=== PATIENT | male | born 1975 | race Hispanic/Latino ===

== ENCOUNTER 2023-12-07 11:17 | Inpatient (IN) | payer MEDICARE, MEDICAID ==
[~2023-12-07] VITALS: Ht 170.2 cm; Wt 100.2 kg
[~2023-12-07 11:17] MED LIST: ACYCLOVIR PO; CIPROFLOXACN500 MG PO; HYDROCHLOROT25 MG PO; INTELENCE200 MG PO; LANSOPRAZOLE30 MG PO; LISINOPRIL10 MG PO; NO HOME MEDS; NORVIR100 MG PO; PREZISTA800 MG PO; SUCRALFATE1 GM PO; ZOFRAN ODT4 MG PO
--- NOTE | 2023-12-07 11:28 | NUR ---
PATIENT ARRIVED TO THE UNIT AMBULATORY A DIRECT ADMIT FROM DR. PRESLEY'S OFFICE. PATIENT SETTLED IN ROOM, PROVIDED [facility]OSPITAL G[facility].
[2023-12-07 11:39] VITALS: BP 122/75
--- NOTE | 2023-12-07 11:39 | NUR ---
PATIENT ORIENTED TO ROOM AND CALL AGUSTIN SYSTEM. 20G PLACED IN LFA. ASSESSMENT COCMPLETED. PATIENT ALERT AND ORIENTED X 4. PATIENT C/O PAIN OF A 10, ORDERS FAXED TO PHARMACY FOR PAIN MEDICATIONS. PATIENT PREFERS TO STAND BECAUSE IT IS "UNCOMFORTABLE TO SIT ON MY R SIDE". ABSCESS CHECKED AND NOTED TO HAVE DRAINAGE. 2 X 2 GAUZE APPLIED WITH LARGE TEGADERM TO PREVENT EXCESS DRAINAGE. LUNGS CLEAR TO ASCULTATION. BREATHING EVEN AND UNLABORED ON ROOM AIR. AFEBRILE. PATIENT DECLINED HOSPITAL ISSUED NONSLIP SOCKS AT THIS TIME. SAFETY MEASURES IN PLACE INCLUDING BED IN LOW POSITION AND CALL LIGHT RESTING IN R HAND. NO APPARENT DISTRESS NOTED. WILL CONTINUE WITH PLAN OF CARE. PRE-OP PACKET STARTED, CONSENT SIGNED FOR INCISION AND DRAINAGE OF R BUTTOCK ABSCESS. PATIENT STATED THAT HE IS SUPPOSED TO TAKE LISINOPRIL/HCTZ, BUT HAS NOT TAKEN THEM "IN A WHILE" BECAUSE HE WAS "OUT OF TOWN" FOR SCHEDULED APPOINTMENT AND DID NOT F/U FOR NEW SCRIPT.
[2023-12-07 12:08] LABS: BASO% 0.8 % (0-3); EOS% 6.4 % (0-8); IMMATURE GRANULOCYTES 0.4 % (0.0-5.0); LYMPH% 26.5 % (15-41); MEAN CORPUSCULAR HGB 26.3 pG CALC (26.0-32.0); MEAN CORPUSCULAR HGB CONC 32.5 g/dL CAL (32.0-36.0); MONO% 8.8 % (2-13); NEUT# 2.86 thou/uL (1.82-7.42); NEUT% 57.1 % (42-76); RED BLOOD COUNT 4.48 mill/uL (4.70-6.10); RED CELL DISTRI WIDTH 14.7 % (11.5-15.5)
[2023-12-07 12:09] LABS: HEMATOCRIT 36.3 % (39.0-50.0); HEMOGLOBIN 11.8 g/dl (14.0-18.0)
[2023-12-07] MEDS ORDERED: HYDROmorphone HCL 2 MG/AMP IV PRN ×2 (12:15)
[2023-12-07] MEDS ORDERED: LACTATED RINGER'S 1,000 ML IV PRN (12:15)
[2023-12-07 12:27] LABS: CREATININE 0.9 mg/dL (0.7-1.3); POTASSIUM 3.2 mmol/l (3.5-5.1)
[2023-12-07] MEDS ORDERED: PROMETHAZINE HCL 12.5 MG in SODIUM CHLORIDE 0.9% 50 ML IV PRN (12:50)
[2023-12-07] MEDS ORDERED: ONDANSETRON HCl 4 MG/2 ML SDV IV PRN (12:50)
[2023-12-07] MEDS ORDERED: PIPERACILLIN Sodium-Tazobactam 3.375 GM in SODIUM CHLORIDE 0.9% 100 ML IV SCH (14:00)
--- NOTE | 2023-12-07 15:47 | NUR ---
PATIENT APPEARS TO BE RESTING WITH EYES CLOSED. NO APPARENT DISTRESS NOTED. WILL CONTINUE TO MONITOR PAIN AND ABSCESS DRAINAGE.
[2023-12-07 16:31] VITALS: BP 122/78
[2023-12-07] MEDS ORDERED: POTASSIUM CHLORIDE 20MEQ 100 ML IV SCH (17:00)
--- NOTE | 2023-12-07 17:02 | NUR ---
PATIENT SCHEDULED FOR AN I/D AT 0830
[2023-12-07 18:22] VITALS: BP 122/77
--- NOTE | 2023-12-07 20:00 | NUR ---
PATIENT IN BED ASLEEP ON LEFT SIDE EYES CLOSED. PATIENT RESPONDS TO VERBAL STIMULI. A&O X4. PATIENT COMPLAINS OF PAIN OF A 9, GAVE SCHEDULED PAIN MEDICATION. ASSESSMENT COMPLETED. LUNGS CLEAR TO ASCULTATION. NORMAL S1 AND S2. BOWEL SOUNDS PRESENT. RIGHT SIDE ABSCESS TO BUTTOCKS INSPECTED DRESSING. DRAINAGE NOTED WITH RED BLOOD. CHANGED DRESSING AND SITE CLEANED, APPLIED AQUACELL TO ABSCESS. COMPLETE BED LINEN CHANGE DUE TO DRAINAGE. BED AT LOWEST POSITION. CALL LIGHT WITH IN REACH.
[2023-12-08] VITALS (12 sets, daily range): BP systolic 95–168; BP diastolic 59–95
[2023-12-08] MEDS ORDERED: KETOROLAC TROMETHAMINE 15 MG/ML SDV IV SCH
--- NOTE | 2023-12-08 00:30 | NUR ---
PATIENT IN BED ASLEEP WITH EYES CLOSED ON LEFT SIDE. PATIENT RESPONDS TO VERBAL STIMULI. CAN MAKE NEEDS KNOWN. NONE NEEDED AT THIS TIME. BED AL LOWEST POSITION. CALL AGUSTIN WITH IN REACH.
--- NOTE | 2023-12-08 04:20 | NUR ---
PATIENT IN BED AWAKE. PATIENT RESPONDS TO VERBAL STIMULI. PATIENT STATED " HE IS IN PAIN OF A 10. GAVE DILAUDID 1 MG IV Q2H PER EMAR SCHEDUILED PRN FOR PAIN. REGGIE AT LOWEST POSITION. CALL LIGHT WITH IN REACH.
--- NOTE | 2023-12-08 07:08 | NUR ---
PATIENT RESTING IN BED, REMAINS ON NPO, ONGOING IV 20 LAC LR AT 100CC/HR INFUSING WELL, NO DISCOMFORTS NOTED AT THIS TIME, CALL, LIGHT IN REACHED.
--- NOTE | 2023-12-08 08:00 | NUR ---
Patient off unit to operating room for incision and drainage.
[2023-12-08] MEDS ORDERED: FAMOTIDINE 10MG/ML 2ML SDV IV ONE (08:56)
[2023-12-08] MEDS ORDERED: LACTATED RINGER'S 1,000 ML IV ONE (08:56)
[2023-12-08] MEDS ORDERED: STERILE WATER FOR IRRIGATION 1,000 ML BTL IR ONE (10:13)
[2023-12-08] MEDS ORDERED: LIDOcaine HCl 1% (Local Anesth.) 20 ML VIAL ONE (10:13)
[2023-12-08] MEDS ORDERED: SODIUM CHLORIDE 1,000 ML BTL IR ONE (10:13)
[2023-12-08] MEDS ORDERED: SODIUM CHLORIDE 0.9% 1,000 ML IV ONE (10:13)
[2023-12-08] MEDS ORDERED: oxyCODONE 5MG/ ACETAMINOPHEN 325MG TAB PO PRN (10:45)
--- NOTE | 2023-12-08 12:00 | NUR ---
patient returned from OR. dry dressing to buttocks. report received from catrachita. vital signs stable post op. no bleeding at site. patient oriented and able to move all extremities. continues on zosyn . tolerating it well. comfort and safety measures in place.
--- NOTE | 2023-12-08 15:55 | NUR ---
Patient oriented x 3. Patient toleratinf antibiotics. Comfort and safety measures in place. Vital signs stable
--- NOTE | 2023-12-08 20:00 | NUR ---
PATIENT RESTING IN BED AT THIS TIME. PATIENT APPEARS IN SEVERE POST-OP PAIN TO RIGHT BUTTOCKS. PAIN SCALE 9/10 AT THIS TIME. MEDICATED WITH DILAUDID 1MG IVP ORDERED. IVF LR PATENT AND INFUSING VIA LAC AT 100CC/HR. DRESSING TO RIGHT BUTTOCKS INTACT. VOIDED 600CC OF YELLOW URINE IN URINAL. LUNGS CLEAR, ABD IS SOFT WITH ACTIVE BS. EATING DINNER AND TOLERATE WELL. SAFETY PRECAUTIONS REINFORCED. CALL LIGHT IN REACH. WILL CONT TO MONITOR.
--- NOTE | 2023-12-08 23:15 | NUR ---
PATIENT RESTING IN BED-MEDICATED FOR C/O RIGHT BUTTOCKS PAIN-9/10 ON PAIN SCALE. WOUND CARE DONE ORDERED TO RIGHT BUTTOCKS WOUND. MODERATE AMT OF SEROSANGINOUS FLUIDS. WOUND CLEANSED WITH SALINE AND THEN PACKED WITH GAUZE-COVERED WITH 4X4'S AND ABD. SECURED WITH PAPER TAPE. PROVIDED WITH GINGERALE AND SNACK. IVF PATENT AND INFUSING VIA LAC SITE ORDERED. ENCOURAGED USE OF IS. SCD'S IN PLACE. POSITIONED ON LEFT SIDE. CALL LIGHT IN REACH. WILL CONT TO MONITOR.
--- NOTE | 2023-12-09 01:55 | NUR ---
PATIENT RESTING IN BED AT THIS TIME POSITIONED ON RIGHT SIDE. C/O RIGHT BUTTOCKS PAIN-MEDICATED WITH DILAUDID 1MG IVP VIA LAC FOR 8/10 PAIN SCALE. ZOSYN HUNG AND INFUSING ORDERED. PATIENT VOIDED 500CC OF JOSE URINE IN URINAL. DRESSING TO RIGHT BUTTOCK INTACT. SAFETY PRECAUTIONS REINFORCED. CALL LIGHT IN REACH, WILL CONT TO MONITOR.
[2023-12-09 04:47] VITALS: BP 112/72
--- NOTE | 2023-12-09 05:02 | NUR ---
RESTING IN BED AT THIS TIME WITH EYES CLOSED. RESPS ARE EVEN AND UNLABORED. IVF PATENT AND INFUSING VIA LEFT AC SITE AT 100CC/HR. DRESSING TO RIGHT BUTTOCKS IONTACT. TAKING PO FLUIDS AND FOOD-TOLERATED WELL. CALL LIGHT IN REACH. WILL CONT TO MONITOR.
--- NOTE | 2023-12-09 06:20 | NUR ---
PATIENT RESTING IN BEDNO RELIEF FROM TORADOL SCHEDULED. MEDICATED WITH DILAUDID 1MG IVP ORDERED FOR 10/10 PAIN SCALE RIGHT BUTTOCKS WOUND. DRESSING DRY AND INTACT. IVF LR PATENT AND INFUSING VIA LAC SITE AT 100CC/HR. CONT TO VOID YELLOW URINE IN URINAL AT BEDSIDE. CALL LIGHT IN REACH. WILL CONT TO MONITOR.
--- NOTE | 2023-12-09 07:00 | NUR ---
SHIFT CHANGE REPORT, PT RESTING IN BED WITH EYES CLOSED, RESPONDS TO VERBAL STIMULI, ORIENTED, C/O SHARP PAIN @ 10/10 TO SURGICAL BUTTOX SITE, IVF INFUSING, CALL AGUSTIN IN REACH, SCD IN PLACE AND BED LOCKED IN LOWEST POSITION. PAIN CONCERN ADDRESSED IN APPROPRIATE TIME.
[2023-12-09 07:48] VITALS: BP 145/88
--- NOTE | 2023-12-09 10:50 | NUR ---
DR PRESLEY HERE ROUNDING WIT PT, EXAMINED WOUND, WROTE NEW ORDERS. NURSE CHANGED DRESSING AND APPLIED NEW ONE ORDERED.
[2023-12-09 15:30] VITALS: BP 127/105
[2023-12-09 15:41] VITALS: BP 141/99
--- NOTE | 2023-12-09 17:22 | NUR ---
PT STAYED IN BED ALL DAY EVEN THOUGH HE HAS BEEN ENCOURAGED TO GET OOB AND AMBULATE, HE IS OOB AT THIS TIME IN RECLINER AND C/O SURGICAL SITE PAIN @ 10/10 AT THIS TIME, NEEDS ADDRESSED.
--- NOTE | 2023-12-09 21:05 | NUR ---
PT RESTING IN BED NO S/S OF DISTRESS NOTED, BREATHING IS EVEN AND UNLABORED. SHIFT ASSESSMENT COMPLETED. NO NEEDS VOICED AT THIS TIME. CALL LIGHT IN REACH.
[2023-12-09 21:11] VITALS: BP 147/90
[2023-12-10] VITALS (7 sets, daily range): BP systolic 104–171; BP diastolic 55–107
--- NOTE | 2023-12-10 04:02 | NUR ---
PT IN BED WATCHING TV, NO S/S OF DISTRESS NOTED. PT REQUEST IV PAIN MEDICATION. IV PAIN MEDICATION IS TO EARLY TO BE ADMINISTERED. PO MEDICATION OFFERED. PT DECLINE PO MED. PT EDUCATED ON THE DIFFERENCE ON IV VS PO. PT CONTINUE TO DECLINE. CALL LIGHT IN REACH AND BED IN LOWSET POSITION.
--- NOTE | 2023-12-10 08:00 | NUR ---
patient sitting up in recliner.
--- NOTE | 2023-12-10 08:16 | NUR ---
PT IS AOX4 RESTING COMFORTABLY IN BED AT THIS TIME. RESOIRATIONS ARE EVEN AND UNLABORED, LUNGS ARE CLEAR, BOWEL SOUNDS ACTIVE IN ALL 4 QUADRANTS, PEDAL PULSES ARE PALPABLE TO TOUCH, RIGHT BUTTOCK DRESSING IS CLEAN, DRY, INTACT AT THIS TIME. PT REPORTING A STABBING PAIN TO RIGHT BUTTOCK, MEDICATED FOR PAIN LEVEL OF 8 ON A 0-10 PAIN SCAL WITH THE ORDERED PRN OXYCODONE. PT ABLE TO GET UP TO 1500 WITH THE IS.
--- NOTE | 2023-12-10 08:33 | NUR ---
S: ESTELA CHEN is a 48 M who presents with abscess of right buttock. All medications in patient's chart were reviewed. O: VS: BP 156/106 mmHg, P 67 bpm, RR 20 breaths/min, T 97.1 f W 100.2 kg, HT 67 in, Scr= 0.9, CrCl= 114.4 ml/min A: Wound culture shows MRSA which is sensitive to vancomycin. . P: Patient is on Zosyn 3.375 g IV Q6H. Vancomycin ordered for pharmacy to dose. Start Vancomycin 1000 mg IV Q8H. Vancomycin trough is drawn before the 4th dose on 12/10 @ 0830. Vancomycin goal trough is between 10-15 mcg/ml. Pharmacy will follow and or advise on antibiotics use as needed.
[2023-12-10] MEDS ORDERED: VANCOMYCIN HCL 1 GM in SODIUM CHLORIDE 0.9% 250 ML IV SCH (09:00)
--- NOTE | 2023-12-10 10:30 | NUR ---
patient back in bed.
--- NOTE | 2023-12-10 11:46 | NUR ---
SPOKE WITH PT ABOUT GETTING UP OUT OF BED FOR MEALS LIKE HE DID FOR BREAKFAST. ALSO LET PT KNOW WE WILL GO FOR A WALK IN HALLS THIS AFTERNOON AFTER LUNCH.
--- NOTE | 2023-12-10 14:37 | NUR ---
RIGHT BUTTOCK DRESSING CHANGED. REMOVED ABD DRESSING, REMOVED FLUFF DRESSING, REMOVED PACKING. SITE IS CLEAN, DRY, NO DRAINAGE, NO ODOR, SURROUNDING SITE HAS NO REDNESS, NO SWELLING NOTED. REPACKED WITH FLUFF GAIZE, COVERED WITH GAUZE FOLLOWED BY AN ABD DRESSING. PT TOLERATED WITH PRN MEDICATION FOR PAIN.
--- NOTE | 2023-12-10 15:34 | NUR ---
PT UP OUT OF BED AMBULATING IN THE ROOM.
--- NOTE | 2023-12-10 19:30 | NUR ---
BEDSIDE SHIFT REPORT COMPLETED. RESP EVEN AND UNLABORED. REQUESTED PAIN MEDICATION FOR ABCESS SURGICAL WOUND PAIN. CALL LIGHT IN REACH.
--- NOTE | 2023-12-11 00:30 | NUR ---
REQUESTING DILAUDID EVERY 2 HOURS ORDERED. STATES PAIN IS A CONSTANT 8/10. DRESSING CLEAN DRY AND INTACT ON BUTTOCK WOUND. CALL LIGHT IN REACH. CONTINUES ON IV ABT WITH NO ADVERSE REACTIONS NOTED.
[2023-12-11] MEDS ORDERED: SODIUM CHLORIDE 0.9% 250 ML IV ONE (02:14)
[2023-12-11 02:23] VITALS: BP 157/101
--- NOTE | 2023-12-11 03:40 | NUR ---
REQUESTED DILAUDID FOR PAIN. ADVISED IT WAS TO SOON FOR THE DILAUDID. STATED, THEN ILL TAKE THE OXYCODONE PAIN PILL. GIVEN S ORDERED.
--- NOTE | 2023-12-11 04:45 | NUR ---
DILAUDID AND ZOFRAN GIVEN FOR C/O PAIN AND NAUSEA. CALL LIGHT IN REACH. SNACK PROVIDED.
[2023-12-11 07:06] VITALS: BP 140/99
--- NOTE | 2023-12-11 07:25 | NUR ---
Report received from manager shift nurse. Patient is sleeping, does not appear to be in any distress. On room air, VS WNL, NSR on tele monitor. All needs addressed, call light within reach.
--- NOTE | 2023-12-11 10:22 | NUR ---
S: ESTELA CHEN is a 48 M who presents with abscess of right buttock. All medications in patient's chart were reviewed. O: VS: BP 127/105 mmHg, P 74 bpm, RR 20 breaths/min, T 97.7 F W 100.2 kg, HT 67 in, Scr= 0.9, CrCl= 114.4 ml/min A: Wound culture shows MRSA which is sensitive to vancomycin. P: Patient is on Zosyn 3.375 g IV Q6H. Vancomycin ordered for pharmacy to dose. Continue Vancomycin 1000 mg IV Q8H. Vancomycin trough is drawn before the dose on 12/11 @ 0830. Vancomycin goal trough is between 10-15 mcg/ml. Pharmacy will follow and or advise on antibiotics use as needed.
[2023-12-11] MEDS ORDERED: DOXYCYCLINE100 MG PO (12:10)
[2023-12-11] MEDS ORDERED: LORTAB 5/3255 MG PO ×2 (12:11→13:11)
--- NOTE | 2023-12-11 13:34 | NUR ---
Discharge instructions given. Patient verbalizes understanding of instructions. Patient educated on wound dressing changes. Verbalizes understanding. Patient has all belongings. Patient is waiting on his ride to pick him up. IV removed. Discharged to home in stable condition.
== END 2023-12-11 16:08 | disposition home or self-care (01) | DRG 603 ==
LOC: MS2 11:17
PROVIDERS: ADMIT Surgery; ATTEND Surgery
PROC: 0H98XZZ Drainage of Buttock Skin, External Approach (ICD-10-PCS; principal; 2023-12-08)
DX: L02.31 Cutaneous abscess of buttock (principal); B95.62 Methicillin resistant Staphylococcus aureus infection as the cause of diseases classified elsewhere; Z21 Asymptomatic human immunodeficiency virus [HIV] infection status